=== PATIENT | female | born 1995 | race Caucasian/White ===

== ENCOUNTER 2016-05-15 18:43 | Emergency (ER) | payer OTHER, MEDICAID ==
[2016-05-15] MEDS ORDERED: SODIUM CHLORIDE 0.9% 1,000 ML ONE (20:19)
[2016-05-15] MEDS ORDERED: ONDANSETRON 4 MG VIAL ONE (20:19)
[2016-05-15] MEDS ORDERED: KETOROLAC 30 MG/ML VIAL ONE (20:19)
[2016-05-15] MEDS ORDERED: ED METRONIDAZOLE IV 100 ML IV ONE (21:14)
== END 2016-05-15 22:22 | disposition home or self-care (01) ==
LOC: ER 18:43
DX: A09 Infectious gastroenteritis and colitis, unspecified (principal)
CPT/HCPCS: 36415; 74176; 80053; 81001; 82274; 83690; 84703; 85025; 96361; 96365; 96375